=== PATIENT | male | born 1985 | race Two or more races ===

== ENCOUNTER 2024-08-06 16:02 | Emergency (ER) | payer OTHER ==
[~2024-08-06] VITALS: Ht 190.5 cm; Wt 77.1 kg
[2024-08-06] MEDS ORDERED: KETOROLAC TROMETHAMINE INJ 30 MG/ML VIAL ONE (16:49)
[2024-08-06] MEDS: KETOROLAC TROMETHAMINE INJ 30 MG/ML VIAL IM ONE (16:52)
[2024-08-06] MEDS ORDERED: IBUP-1490 PO (17:57)
[2024-08-06] MEDS ORDERED: ACET-2030 PO (17:57)
[2024-08-06 18:14] VITALS: BP 131/84; TEMP 98.4; O2SAT 100
== END 2024-08-06 18:14 | disposition home or self-care (01) ==
LOC: ER 16:07
DX: S99.821A Other specified injuries of right foot, initial encounter (principal); M79.671 Pain in right foot; Z60.2 Problems related to living alone; Z79.899 Other long term (current) drug therapy; V49.3XXA Car occupant (driver) (passenger) injured in unspecified nontraffic accident, initial encounter; Y93.01 Activity, walking, marching and hiking; Y92.488 Other paved roadways as the place of occurrence of the external cause; Y99.8 Other external cause status
CPT/HCPCS: 99283; 96372; 73630; J1885